=== PATIENT | male | born 1990 | race Hispanic/Latino ===

== ENCOUNTER 2022-12-13 10:48 | Emergency (ER) | payer SELFPAY ==
--- OUTSIDE RECORDS SUMMARY | 2022-12-13 10:51 | XMS REPORT | Continuity of Care Document ---
:1990 Author Organization [facility] t Address [address] [place] [id number] Care Team Providers Name Role Phone Unavailable Unavailable Unavailable Problems This patient has no known problems. Allergies, Adverse Reactions, Alerts This patient has no known allergies or adverse reactions. Medications This patient has no known medications. Procedures This patient has no known procedures. Results This patient has no known results.
[2022-12-13 11:47] LABS: SARS-CoV-2 Antigen Rapid Res Negative (Negative)
--- NOTE | 2022-12-13 12:01 | EDPHYS ---
Physician Documentation [facility] Name: Gustavo Ronquillo Age: 32 yrs Sex: Male : 1990 Arrival Date: 12/13/2022 Time: 10:48 Bed IW1 Private MD: ED Physician Carlos Carrillo HPI: 12/13 10:58 This 32 yrs old Male presents to ER via Unassigned with complaints of Flu rn Symptoms. 10:58 The patient or guardian reports flu symptoms, low-grade fever, myalgias, no appetite. rn Onset: The symptoms/episode began/occurred yesterday. Severity of symptoms: At their worst the symptoms were mild, in the emergency department the symptoms are unchanged. Modifying factors: The symptoms are alleviated by nothing, the symptoms are aggravated by nothing. Associated signs and symptoms: Pertinent positives: fever, rhinorrhea, sore throat, Pertinent negatives: chest pain, vomiting. The patient has not experienced similar symptoms in the past. The patient has not recently seen a physician. Historical: - Allergies: 11:05 No Known Allergies; hb - Family history:: not pertinent. - Hospitalizations: : No recent hospitalization is reported. ROS: 10:58 Constitutional: Positive for fever and chills ENT: Positive for nasal congestion and rn sore throat Neck: Negative for injury, pain, and swelling, Respiratory: Negative for shortness of breath, cough, wheezing, and pleuritic chest pain, Abdomen/GI: Negative for abdominal pain, nausea, vomiting, diarrhea, and constipation, MS/Extremity: Negative for injury and deformity, Skin: Negative for injury, rash, and discoloration, Neuro: Positive for headache Exam: 10:58 Constitutional: This is a well developed, well nourished patient who is awake, alert, rn and in no acute distress. Ambulatory to room without difficulty or assistance Head/Face: Normocephalic, atraumatic. ENT: Mucous membranes moist. No stridor. Pharyngeal erythema present, no tonsillar hypertrophy, uvula midline. Neck: Trachea midline, no masses palpated, and no cervical lymphadenopathy. Supple, full range of motion without nuchal rigidity, or vertebral point tenderness. No Meningismus. Cardiovascular: Regular rate and rhythm. No pulse deficits. Respiratory: No increased work of breathing, no retractions or nasal flaring. Neuro: Awake and alert, GCS 15 Vital Signs: 11:04 BP 140 / 87; Pulse 92; Resp 18; Temp 99.6(O); Pulse Ox 97% on R/A; Weight 97.52 kg; hb Height 5 ft. 7 in. ; Pain 10; 11:04 Body Mass Index 33.67 (97.52 kg, 170.18 cm) hb 11:04 Pain Scale: Adult hb MDM: 11:09 Patient medically screened. rn 11:59 Differential Diagnosis: Influenza Upper Respiratory Infection Sinusitis Pharyngitis rn Viral Syndrome. Data reviewed: vital signs, nurses notes, lab test result(s), and as a result, I will discharge patient. Counseling: I had a detailed discussion with the patient and/or guardian regarding the historical points, exam findings, and any diagnostic results supporting the discharge/admit diagnosis, lab results, the need for outpatient follow up, to return to the emergency department if symptoms worsen or persist or if there are any questions or concerns that arise at home. Special discussion: I discussed with the patient/guardian in detail that at this point there is no indication for admission to the hospital. It is understood, however, that if the symptoms persist or worsen the patient needs to return immediately for re-evaluation. 11:59 ED course: I have personally reviewed all of the results, including but not limited to rn blood tests deemed necessary to safely discharge this patient at this time. All results given to and printed out for patient. I personally went over all the results with the patient and answered all questions. Patient will follow-up with PCP and or specialist as discussed. Return precautions given and understood.. 12/13 10:57 Order name: Strep rn 12/13 10:57 Order name: Flu; Complete Time: 11:59 rn 12/13 10:57 Order name: SARS RAPID; Complete Time: 11:59 rn 12/13 11:48 Order name: Throat Culture EDMS Administered Medications: No medications were administered Disposition Summary: 12/13/22 12:01 Discharge Ordered Notes: Location: Home rn Problem: new rn Symptoms: have improved rn Condition: Stable rn Diagnosis - Acute upper respiratory infection, unspecified rn - Fever, unspecified rn Followup: rn - With: Private Physician - When: As needed - Reason: Recheck today's complaints, Re-evaluation by your physician Discharge Instructions: - Discharge Summary Sheet rn - Fever, Adult rn - Upper Respiratory Infection, Adult rn Forms: - Medication Reconciliation Form rn - Thank You Letter rn - Antibiotic returned goods sorter - Prescription Opioid Use rn - Patient Portal Instructions rn - Leadership Thank You Letter rn - Work release form Prescriptions: - Zithromax Z-George 250 mg Oral Tablet - take 1 tablet ORAL route as directed for 5 days Day 1 - take two (2) tablets rn one time. Day 2, 3, 4 , 5 take one (1) tablet once daily.; 6 tablet; Refills: 0, Product Selection Permitted Signatures: Dispatcher [employer] EDCarlos hCoi MD MD rn Baxter, Heather, RN RN
--- NOTE | 2022-12-13 12:01 | ER ---
Nurse's Notes [facility] Name: Gustavo Ronquillo Age: 32 yrs Sex: Male : 1990 Arrival Date: 12/13/2022 Time: 10:48 Bed IW1 Private MD: Diagnosis: Acute upper respiratory infection, unspecified;Fever, unspecified Presentation: 12/13 11:04 Chief complaint: Sore throat, body aches, headache, cough, congestion, and subjective hb fever x 2-3 days, nausea today. Vomit x 1 this morning. Coronavirus screen: Client presents with at least one sign or symptom that may indicate coronavirus-19. Standard/surgical mask placed on the client. Provider contacted for isolation considerations. Ebola Screen: No symptoms or risks identified at this time. Initial Sepsis Screen: Does the patient meet any 2 criteria? No. Patient's initial sepsis screen is negative. Does the patient have a suspected source of infection? No. Patient's initial sepsis screen is negative. Risk Assessment: Do you want to hurt yourself or someone else? Patient reports no desire to harm self or others. Onset of symptoms was December 11, 2022. 11:04 Method Of Arrival: Ambulatory hb 11:04 Acuity: AMANDA 4 hb Historical: - Allergies: 11:05 No Known Allergies; hb - Family history:: not pertinent. - Hospitalizations: : No recent hospitalization is reported. Vital Signs: 11:04 BP 140 / 87; Pulse 92; Resp 18; Temp 99.6(O); Pulse Ox 97% on R/A; Weight 97.52 kg; hb Height 5 ft. 7 in. ; Pain 6/10; 11:04 Body Mass Index 33.67 (97.52 kg, 170.18 cm) hb 11:04 Pain Scale: Adult hb ED Course: 10:50 Patient arrived in ED. mr 10:51 Carlos Carrillo MD is Attending Physician. rn 10:51 [facility]y Rooney FNP [facility] 10:51 Carlos Carrillo MD is Attending Physician. rn 11:05 Triage completed. hb 11:06 Strep Sent. hb 11:06 SARS RAPID Sent. hb 11:06 Flu Sent. hb Administered Medications: No medications were administered Outcome: 12:01 Discharge ordered by MD. rn 12:08 Patient left the ED. cm10 Signatures: Brie Dillard, Reg Reg mr Carlos Carrillo MD MD rn Baxter, Heather, RN RN Rosy Rooney, YARN SORTER YARN SORTER [id number] Candis Claros RN RN cm10
[2022-12-13 12:12] VITALS: BP 140/87; TEMP 99.6; O2SAT 97
== END 2022-12-13 12:08 | disposition home or self-care (01) ==
LOC: ER 10:48
DX: J06.9 Acute upper respiratory infection, unspecified (principal); Z11.52 Encounter for screening for COVID-19
CPT/HCPCS: 36415; 87070; 87081; 87804; 87811; 99282